=== PATIENT | male | born 1985 | race African-American/Black ===

== ENCOUNTER 2024-05-25 12:29 | Emergency (ER) | payer SELFPAY ==
[2024-05-25] MEDS ORDERED: Lidocaine 1% with EPINEPHrine 1:100,000 10 ML MDV INJECT ONE (12:46)
[2024-05-25] MEDS: Lidocaine 1% 10 ML MDV INJECT ONE (13:24)
[2024-05-25] MEDS: Diphtheria,Pertussis(Acell),Tetanus Vaccine 0.5 ML Syringe IM ONE (14:10)
== END 2024-05-25 14:05 | disposition home or self-care (01) ==
LOC: JD.ED 12:29
DX: S61.511A Laceration without foreign body of right wrist, initial encounter (principal); S61.421A Laceration with foreign body of right hand, initial encounter; Z23 Encounter for immunization; W26.8XXA Contact with other sharp object(s), not elsewhere classified, initial encounter; Y99.0 Civilian activity done for income or pay
CPT/HCPCS: 12002; 90471; 99282-25; 99283; J3490